=== PATIENT | female | born 1990 | race Caucasian/White ===

== ENCOUNTER 2016-12-29 22:19 | Emergency (ER) | payer MEDICAID ==
[~2016-12-29] VITALS: Ht 152.4 cm; Wt 86.3 kg
[~2016-12-29 22:19] MED LIST: CALC600T5 PO; FERR240T9 PO; PRENAT PO
[2016-12-29 22:25] VITALS: Ht 152.4 cm; Wt 86.3 kg
--- NOTE | 2016-12-30 01:38 | ERD ---
ER Documentation Chief Complaint Date/Time DATE: 12/30/16 TIME: 01:37 Chief Complaint VAG BLEEDING 15 WEEKS PREG. DENIES ABD. CRAMPING. HPI 26-year-old female presents here in emergency department for complaints of vaginal bleeding started tonight. Patient describes the bleeding as mild, patient is approximately 15 weeks . 3 para 2 0. Last menstruation 09/25/2016. Patient denies any abdominal pain. Patient denies any flank pain. Patient denies any fever or chills. Patient denies any nausea or vomiting. ROS All systems reviewed and are negative except as per history of present illness. Medications Home Meds Reported Medications Calcium Carbonate (CALCIUM) 600 Mg Tablet, 600 MG PO, TAB 03/10/16 Ferrous Gluconate (Iron) 1 Tab Tablet, 1 TAB PO, TAB 03/10/16 Multivit/Min/Fol Ac/Iron/Pren* ( S*) 1 Tab Tab, 1 TAB PO DAILY, TAB 03/10/16 Allergies Allergies: Coded Allergies: No Known Drug Allergy (Unverified Allergy, Unknown, 12/29/16) PMhx/Soc History of Surgery: Yes ( x1) Anesthesia Reaction: No Hx Neurological Disorder: No Hx Respiratory Disorders: No Hx Cardiac Disorders: No Hx Psychiatric Problems: No Hx Miscellaneous Medical Probl: No Hx Alcohol Use: No Hx Substance Use: No Hx Tobacco Use: No Smoking Status: Never smoker FmHx Family History: No coronary disease, No diabetes, No other Physical Exam Vitals Vital Signs Date Time Temp Pulse Resp B/P Pulse Ox O2 Delivery O2 Flow Rate FiO2 12/29/16 22:25 97.3 102 18 115/59 99 Physical Exam GENERAL: The patient is well developed and appropriate for usual state of health, in no apparent distress. CHEST: Clear to auscultation bilaterally. There are no rales, wheezes or rhonchi. HEART: Regular rate and rhythm. No murmurs, clicks, rubs or gallops. No S3 or S4. ABDOMEN: Soft, nontender and nondistended. Good bowel sounds. No rebound or guarding. No gross peritonitis. No gross organomegaly or masses. No Fortune sign or McBurney point tenderness. BACK: No midline or flank tenderness. EXTREMITIES: Equal pulses bilaterally. There is no peripheral clubbing, cyanosis or edema. No focal swelling or erythema. Full range of motion. Grossly neurovascularly intact. NEURO: Alert and oriented. Cranial nerves 2-12 intact. Motor strength in all 4 extremities with 5/5 strength. Sensation grossly intact. Normal speech and gait. SKIN: There is no apparent rash or petechia. The skin is warm and dry. HEMATOLOGIC AND LYMPHATIC: There is no evidence of excessive bruising or lymphedema. No gross cervical, axillary, or inguinal lymphadenopathy. Result Diagram: 12/30/16 0154 Results 24 hrs Laboratory Tests Test 12/30/16 01:42 12/30/16 01:54 Urine Bacteria RARE Urine Bilirubin NEGATIVE Urine Clarity SL HAZY Urine Color LT. YELLOW Urine Glucose NEGATIVE% Urine Hemoglobin 3+ Urine Ketones NEGATIVE Urine Leukocyte Esterase NEGATIVE Urine Microscopic RBC >200/HPF Urine Microscopic WBC 0-2/HPF Urine Nitrite NEGATIVE Urine Specific [place] >=1.030 Urine Squamous Epithelial Cells FEW Urine Total Protein TRACE Urine Urobilinogen 0.2 E.U./dL Urine pH 6.0 Basophils # 0.010^3/ul Basophils % 0.2% Beta HCG, Quantitative 01251.0mIU/ml Eosinophils # 0.110^3/ul Eosinophils % 1.1% Hematocrit 27.3% Hemoglobin 8.1g/dl Lymphocytes # 1.910^3/ul Lymphocytes % 20.9% Mean Corpuscular Hemoglobin 21.8pg Mean Corpuscular Hemoglobin Concent 29.7g/dl Mean Corpuscular Volume 73.6fl Mean Platelet Volume 11.0fl Monocytes # 0.710^3/ul Monocytes % 8.3% Neutrophils # 6.210^3/ul Neutrophils % 69.1% Nucleated Red Blood Cells # 0.010^3/ul Nucleated Red Blood Cells % 0.0/100WBC Platelet Count 01284^3/UL Red Blood Count 3.7110^6/ul Red Cell Distribution Width 20.2% White Blood Count 9.010^3/ul PROCEDURE: US OB. CLINICAL INDICATION: Vaginal bleeding. TECHNIQUE: Multiple sonographic images of the pelvis were obtained. Transabdominal imaging only was performed. The images were reviewed on a PACS workstation. COMPARISON: None. FINDINGS: Single live intrauterine is identified. Cardiac activity is present with 161 beats per minute. There is a variable presentation. Measurements: BPD = 15 weeks 2 days. HC = 15 weeks 0 days. AC = 15 weeks 0 days. FL = 14 weeks 5 days. Estimated gestational age of approximately 15 weeks 0 days. The estimated date of delivery is 06/23/2017. The EFW = 109 g which is at the 69th percentile. Limited evaluation of anatomy is without gross abnormality. The placenta is posterior. Cervix is not well visualized. There is a grossly normal amount of amniotic fluid with a MVP = 4.1 cm. IMPRESSION: Single live intrauterine gestation of approximately 15 weeks 0 days. RPTAT: HMVK .Enrique Brownlee MD, MD Date Time Electronically viewed and signed by .Enrique Brownlee MD, MD on 12/30/2016 02:23 .K/ CC: LUCINDA FERNÁNDEZ GENERAL ENGINEER Procedures/MDM Medical Decision Making: Patients vaginal bleeding is most likely consistent of possible threatened . Patient does not show any evidence of hypovolemic shock. Patients hemoglobin and hematocrit is stable. There is low suspicion for ectopic . ISIAH results show viable at 15 weeks, no abruption placenta placenta previa, good, does not communicate fluid noted BetaHCG Quantitative is appropriate for The patient is Rh+, does not need RhoGAM this time. There is no signs of symptoms of dehydration. There is low suspicion for sepsis. Patient appears well and is hemodynamically stable. Disposition: Home. Condition: Stable Instructions: Patient is advised to do bed rest, avoid heavy lifting, and avoid having sex until cleared by OB doctor. Patient is advised to follow up with OB doctor or here at the ER in 48 hours for reevaluation of symptoms, repeat beta HCG quantitative and ultrasound. Patient is advised that is symptoms are worst, severe bleeding, dizziness, severe abdominal pain, fever, worst signs and symptoms to return to the emergency department immediately. Departure Diagnosis: Primary Impression: Vaginal bleeding Additional Impression: Intrauterine Condition: Stable Patient Instructions: Vaginal Bleed in Additional Instructions: Patient is advised to do bed rest, avoid heavy lifting, and avoid having sex until cleared by OB doctor. Patient is advised to follow up with OB doctor or here at the ER in 48 hours for reevaluation of symptoms, repeat beta HCG quantitative and ultrasound. Patient is advised that is symptoms are worst, severe bleeding, dizziness, severe abdominal pain, fever, worst signs and symptoms to return to the emergency department immediately. LUCINDA FERNÁNDEZ NP Dec 30, 2016 01:38
[2016-12-30 02:06] LABS: ADD UMIC YES; URINE BILIRUBIN (Dip) NEGATIVE (NEGATIVE); URINE BLOOD (Dip) 3+ (NEGATIVE); URINE COLOR LT. YELLOW (YELLOW); URINE GLUCOSE (Dip) NEGATIVE (NEGATIVE); URINE KETONES (Dip) NEGATIVE (NEGATIVE); URINE LEUKOCYTE ESTERASE (Dip) NEGATIVE (NEGATIVE); URINE NITRITE (Dip) NEGATIVE (NEGATIVE); URINE TOTAL PROTEIN (Dip) TRACE (NEGATIVE); URINE UROBILINOGEN (Dip) 0.2 E.U./dL (0.1-1.0)
[2016-12-30 02:08] LABS: ADD SCAN DIFF NO
[2016-12-30 02:14] LABS: URINE RBCS >200 /HPF (0)
[2016-12-30 02:15] LABS: BACTERIA,URINE RARE; SQUAMOUS EPITHELIAL CELL,UR FEW
[2016-12-30 02:21] LABS: BASOPHILS % 0.2 % (0.0-2.0); EOSINOPHILS # 0.1 10^3/ul (0.0-0.5); EOSINOPHILS % 1.1 % (0.0-7.0); HEMATOCRIT 27.3 % (37.0-47.0); HEMOGLOBIN 8.1 g/dl (12.0-16.0); LYMPHOCYTES # 1.9 10^3/ul (0.8-2.9); LYMPHOCYTES % 20.9 % (15.0-51.0); MEAN CORPUSCULAR HEMOGLOBIN 21.8 pg (29.0-33.0); MEAN CORPUSCULAR HGB CONC 29.7 g/dl (32.0-37.0); MEAN CORPUSCULAR VOLUME 73.6 fl (82.0-101.0); MONOCYTE # 0.7 10^3/ul (0.3-0.9); MONOCYTES % 8.3 % (0.0-11.0); NEUTROPHIL # 6.2 10^3/ul (1.6-7.5); NEUTROPHILS % 69.1 % (39.0-77.0); PLATELET COUNT 280 10^3/UL (140-415); RED BLOOD COUNT 3.71 10^6/ul (4.20-5.40); RED CELL DISTRIBUTION WIDTH 20.2 % (11.5-14.5)
--- NOTE | 2016-12-30 02:23 | RADRPT ---
PROCEDURE: US OB. CLINICAL INDICATION: Vaginal bleeding. TECHNIQUE: Multiple sonographic images of the pelvis were obtained. Transabdominal imaging only w as performed. The images were reviewed on a PACS workstation. COMPARISON: None. FINDINGS: Single live intrauterine is identified. Cardiac activity is present with 161 beats per mi nute. There is a variable presentation. Measurements: BPD = 15 weeks 2 days. HC = 15 weeks 0 days. AC = 15 weeks 0 days. FL = 14 weeks 5 days. Estimated gestational age of approximately 15 weeks 0 days. The estimated date of delivery is 06/23/2017. The EFW = 109 g which is at the 69th percentile. Limited evaluation of anatomy is without gross abnormality. The placenta is posterior. Cervix is not well visualized. There is a grossly normal amount of amniotic fluid with a MVP = 4.1 cm. IMPRESSION: Single live intrauterine gestation of approximately 15 weeks 0 days. RPTAT: HMVK .Enrique Brownlee MD, Date Time Electronically viewed and signed by .Enrique Brownlee MD, on 12/30/2016 02:23 .K/
[2016-12-30 04:57] VITALS: BP 114/66; PULSE 86; RESP 16
== END 2016-12-30 05:01 | disposition home or self-care (01) ==
LOC: FTE 22:19
DX: O20.9 Hemorrhage in early pregnancy, unspecified (principal); Z3A.15 15 weeks gestation of pregnancy
CPT/HCPCS: 36415; 76805; 81001; 84702; 85025; 86900; 86901; Z7502; 81003

== ENCOUNTER 2017-01-09 10:53 | Emergency (ER) | payer SELFPAY ==
[~2017-01-09] VITALS: Ht 157.5 cm; Wt 78.0 kg
[2017-01-09 11:01] VITALS: Ht 157.5 cm; Wt 78.0 kg
== END 2017-01-09 13:42 | disposition left against medical advice (07) ==
LOC: FTE 10:53
DX: Z53.21 Procedure and treatment not carried out due to patient leaving prior to being seen by health care provider (principal)

== ENCOUNTER 2017-05-06 10:59 | Outpatient (CLI) | payer OTHER ==
[~2017-05-06] VITALS: Ht 154.9 cm; Wt 91.6 kg
[2017-05-06] MEDS ORDERED: LACTATED RINGER'S 1,000 ML IV SCH (11:31)
[2017-05-06 11:33] VITALS: BP 106/55; PULSE 115; RESP 20; Ht 154.9 cm; Wt 91.6 kg
[2017-05-06 11:51] LABS: ADD UMIC YES; UR ASCORBIC ACID NEGATIVE (NEGATIVE); UR BACTERIA FEW /HPF (NONE SEEN); UR BILIRUBIN (Dip) NEGATIVE (NEGATIVE); UR BLOOD (Dip) NEGATIVE (NEGATIVE); UR CLARITY CLOUDY (CLEAR); UR COLOR YELLOW (YELLOW); UR GLUCOSE (Dip) NEGATIVE (NEGATIVE); UR KETONES (Dip) NEGATIVE (NEGATIVE); UR LEUKOCYTE ESTERASE (Dip) NEGATIVE Leu/ul (NEGATIVE); UR MUCUS FEW /HPF (NONE SEEN); UR NITRITE (Dip) NEGATIVE (NEGATIVE); UR RBC 1 /HPF (0-5); UR SPECIFIC GRAVITY (Dip) 1.031 (1.003-1.030); UR SQUAMOUS EPITHELIAL CELL FEW /HPF (FEW); UR TOTAL PROTEIN (Dip) 1+ mg/dl (NEGATIVE); UR UROBILINOGEN (Dip) 1+ mg/dL (NEGATIVE)
--- NOTE | 2017-05-06 12:07 | RADRPT ---
PROCEDURE: US OB biophysical profile. CLINICAL INDICATION: decreased movements TECHNIQUE: Multiple sonographic images of the pelvis were obtained. The images were reviewed on a PACS workstation. COMPARISON: No prior studies are available for comparison. FINDINGS: There is a single viable intrauterine gestation. Cardiac activity is present with 154 beats per min chepe. There is a vertex presentation. The placenta is posterior. There is no evidence of placental abruption. There is a normal amount of amniotic fluid with an LOGAN = 8.9 cm. Biophysical profile: movement 2/2 tone 2/2. breathing 2/2 LOGAN 2/2 Total 06/09 RPTAT: AA . IMPRESSION: Normal biophysical profile. . .Sergey Gamble MD, MD Date Time Electronically viewed and signed by .Sergey Gamble MD, MD on 05/06/2017 12:07 .S/
[2017-05-06] MEDS ORDERED: ACETAMINOPHEN 500 MG TAB PO STA (13:50)
[2017-05-06] MEDS ORDERED: TERBUTALINE 1 MG/ML INJ SC ONE (14:00)
--- NOTE | 2017-05-06 14:28 | PN ---
Triage Information Date/Time May 06, 2017 Weeks of Gestation 32 weeks : 3 Para: 2 Diabetes: none Hypertention: none Additional information 27-year-old with IUP at 32 weeks presented with complaint of feeling low back pain and cramping. She denies any leaking of fluid or vaginal bleeding. She denies any urinary symptoms. Denies any complication during her course. Pain starts in the low back. Crampy. Radiated to the lower back.. Patient had intercourse in 24 hours. Objective Vital Signs Date Time Temp Pulse Resp B/P Pulse Ox O2 Delivery O2 Flow Rate FiO2 05/06/17 11:33 98.6 115 20 106/55 98 Room Air Heart Rate: 130's Contractions: None Exam GA: A&O, NAD Laboratory Tests Test 05/06/17 11:15 Urine Color YELLOW Urine Clarity CLOUDY Urine pH 5.0 Urine Specific [place] 1.031 Urine Ketones NEGATIVEmg/dL Urine Nitrite NEGATIVEmg/dL Urine Bilirubin NEGATIVEmg/dL Urine Urobilinogen 1+mg/dL Urine Leukocyte Esterase NEGATIVELeu/ul Urine Microscopic RBC 1/HPF Urine Microscopic WBC 2/HPF Urine Squamous Epithelial Cells FEW/HPF Urine Bacteria FEW/HPF Urine Mucus FEW/HPF Urine Hemoglobin NEGATIVEmg/dL Urine Glucose NEGATIVEmg/dL Urine Total Protein 1+mg/dl Abdomen: Soft, Non tender Fundal Height consistent with date NST: Cat 1 No contractions on the monitor seen BPP: 06/09 Results/Medications Results 24 hrs Laboratory Tests Test 05/06/17 11:15 Urine Color YELLOW Urine Clarity CLOUDY A Urine pH 5.0 Urine Specific [place] 1.031 H Urine Ketones NEGATIVE Urine Nitrite NEGATIVE Urine Bilirubin NEGATIVE Urine Urobilinogen 1+ H Urine Leukocyte Esterase NEGATIVE Urine Microscopic RBC 1 Urine Microscopic WBC 2 Urine Squamous Epithelial Cells FEW Urine Bacteria FEW A Urine Mucus FEW A Urine Hemoglobin NEGATIVE Urine Glucose NEGATIVE Urine Total Protein 1+ H Medications Current Medications Lactated Ringer's (Lr) 1,000 ml @ 125 mls/hr Q8H IV ; Start 05/06/17 at 11:31 Imaging Results PROCEDURE: Limited obstetric ultrasound CLINICAL INDICATION: Pain TECHNIQUE: Multiple transverse and longitudinal grayscale images of the pelvis were obtained transabdominally and transvaginally.. COMPARISON: same day FINDINGS: The cervix is closed with a length of 5.6 cm. There is a single viable intrauterine gestation. Cardiac activity is present with 150 beats per minute. There is a vertex presentation. The placenta is posterior. There is no evidence for an abruption or placenta previa. RPTAT: AA IMPRESSION: Cervix length measures 5.6 cm. PROCEDURE: US OB biophysical profile. CLINICAL INDICATION: decreased movements TECHNIQUE: Multiple sonographic images of the pelvis were obtained. The images were reviewed on a PACS workstation. COMPARISON: No prior studies are available for comparison. FINDINGS: There is a single viable intrauterine gestation. Cardiac activity is present with 154 beats per minute. There is a vertex presentation. The placenta is posterior. There is no evidence of placental abruption. There is a normal amount of amniotic fluid with an LOGAN = 8.9 cm. Biophysical profile: movement 2/2 tone 2/2. breathing 2/2 LOGAN 2/2 Total 06/09 RPTAT: AA . IMPRESSION: Normal biophysical profile. Assessment/Plan IUP at 32 weeks No evidence of labor Cramps due to dehydration. Resolved after p.o. hydration. Cervix long and closed Symptoms resolved after hydration testing reassuring Patient will be discharged home labor precaution and kick count discussed Follow-up with her OB office in 1-2 days after discharge discussed Continue p.o. hydration Return to triage if she has recurrence of the symptoms or for any other concerns. Patient verbalized understanding. ROLF ENRIQUE MD May 06, 2017 14:28
--- NOTE | 2017-05-06 15:46 | RADRPT ---
PROCEDURE: Limited obstetric ultrasound CLINICAL INDICATION: Pain TECHNIQUE: Multiple transverse and longitudinal grayscale images of the pelvis were obtained castelan sabdominally and transvaginally.. COMPARISON: same day FINDINGS: The cervix is closed with a length of 5.6 cm. There is a single viable intrauterine gestation. Cardiac activity is present with 150 beats per min [place]. There is a vertex presentation. The placenta is posterior. There is no evidence for an abruption or placenta previa. RPTAT: AA IMPRESSION: Cervix length measures 5.6 cm. .Sergey Gamble MD, MD Date Time Electronically viewed and signed by .Sergey Gamble MD, on 05/06/2017 15:46 .S/
--- NOTE | 2017-05-06 16:17 | TRIAGE ---
OB Triage Datetime Report Generated by CPN: 05/06/2017 16:16 Datetime: 05/06/2017 11:29 Time of Arrival: 05/06/2017 10:50 EGA: 32.0 Arrived By: Ambulatory Arrived From: Home Chief Complaint: contractions Movement: Present Contractions: Regular Time Contractions Began: 05/06/2017 08:00 Vaginal Bleeding: None Vaginal Discharge: Denies Recent Sexual Intercouse: Denies Patient Complaints: Contractions Time Provider Notified: 05/06/2017 11:19 Provider Notified: dr. zaidi Initial Plan: bpp, cl, iv hydration
== END 2017-05-06 15:34 | disposition home or self-care (01) ==
LOC: L-D 10:59 → OBT 10:59
PROVIDERS: ATTEND Obstetrics & Gynecology
DX: O62.9 Abnormality of forces of labor, unspecified (principal); Z3A.32 32 weeks gestation of pregnancy
CPT/HCPCS: 36415; 76817; 76818; 81001; 96360; 96372; J3105; J7120; Z7500; Z7610; G0463

== ENCOUNTER 2017-06-16 09:33 | Inpatient (IN) | payer OTHER ==
[~2017-06-16] VITALS: Ht 157.5 cm; Wt 90.9 kg
[~2017-06-16 09:33] MED LIST changes: +EPHEDrine SULFATE 50 MG/5 ML SYG ONE
[2017-06-16] MEDS ORDERED: LACTATED RINGER'S 1,000 ML IV SCH ×4 (09:44→14:35)
[2017-06-16 09:52] VITALS: Ht 157.5 cm; Wt 90.9 kg
[2017-06-16 10:00] VITALS: BP 112/62; PULSE 72; RESP 20
[2017-06-16] MEDS ORDERED: OXYTOCIN 30 UNITS/LR 500 ML IV PRN ×5 (10:00→19:00)
[2017-06-16] MEDS ORDERED: CARBOPROST 250 MCG INJ IM PRN ×5 (10:00→19:00)
[2017-06-16] MEDS ORDERED: MISOPROSTOL 200 MCG TAB PR PRN ×5 (10:00→19:00)
[2017-06-16] MEDS ORDERED: METHYLERGONOVINE 0.2 MG INJ IM PRN ×5 (10:00→19:00)
[2017-06-16] MEDS ORDERED: OXYTOCIN 30 UNITS/LR 500 ML IV SCH ×4 (10:00→14:35)
[2017-06-16 11:02] LABS: ABNORMAL IP MESSAGE 1; BASOPHILS % 0.3 % (0.0-2.0); EOSINOPHILS # 0.1 10^3/ul (0.0-0.5); HEMOGLOBIN 11.8 g/dl (12.0-16.0); LYMPHOCYTES # 1.6 10^3/ul (0.8-2.9); LYMPHOCYTES % 26.5 % (15.0-51.0); MEAN CORPUSCULAR HEMOGLOBIN 31.2 pg (29.0-33.0); MEAN CORPUSCULAR HGB CONC 33.7 g/dl (32.0-37.0); MEAN CORPUSCULAR VOLUME 92.6 fl (82.0-101.0); MEAN PLATELET VOLUME 11.7 fl (7.4-10.4); MONOCYTE # 0.5 10^3/ul (0.3-0.9); MONOCYTES % 8.9 % (0.0-11.0); NEUTROPHILS % 62.8 % (39.0-77.0); PLATELET COUNT 167 10^3/UL (140-415); RED BLOOD COUNT 3.78 10^6/ul (4.20-5.40); RED CELL DISTRIBUTION WIDTH 20.5 % (11.5-14.5)
[2017-06-16 11:08] LABS: POSITIVE DIFF @See below
[2017-06-16 11:21] LABS: INR 1.03; PARTIAL THROMBOPLASTIN TIME 28.9 Sec (25.0-35.0); PROTIME 13.5 Sec (12.2-14.2); PT RATIO 1.1
[2017-06-16] MEDS ORDERED: SOD CHLORIDE 0.9% 1,000 ML IV SCH (11:30)
[2017-06-16] MEDS ORDERED: FAMOTIDINE 20 MG INJ ONE (12:57)
[2017-06-16] MEDS ORDERED: CITRIC ACID/NA CITRATE 30 ML CUP ONE (12:57)
[2017-06-16] MEDS ORDERED: METOCLOPRAMIDE 10 MG INJ ONE (12:58)
[2017-06-16] MEDS ORDERED: LACTATED RINGER'S 1,000 ML IV ONE (13:01)
[2017-06-16] MEDS ORDERED: FAMOTIDINE 20 MG INJ IV STA (13:03)
[2017-06-16] MEDS ORDERED: FENTAnyl 50 MCG/ML VIAL ONE (13:18)
[2017-06-16] MEDS ORDERED: morphine SULFATE/PF (10 MG/10 ML) INJ ONE (13:18)
--- NOTE | 2017-06-16 13:19 | HP ---
Date/Time of Note Date/Time of Note DATE: 06/16/17 TIME: 13:13 OB - History Hx of Present Free Text/Dictation 27 years female 3 para 2 EDC June 23, 2017 admitted to [facility] at 39 weeks gestation history of 2 previous section to undergo repeat section patient also had requested bilateral tubal ligation at the time of her section failure rate of tubal ligation increased risk of ectopic future failure to conceive has been discussed with the patient she would like to proceed with the operation This patient has been under the care of the [facility] and her was complicated with anemia during the course even though she was taking iron soft required transfusion prior to her surgery. Chief Complaint: history of 2 previous request for tubal ligation Estimated Due Date: Jun 23, 2017 : 3 Para: 2 Care: Good Care Ultrasounds: Normal mid trimester US Obstetrical Complications: Other (Anemia) Medical Complications: None Past Family/Social History * Past Medical, Surgical, Family and Obstetric Histories reviewed from chart. Rubella: immune RPR/VDRL: Negative GBS Status: Negative HBsAG: Negative OB Admission Exam Vital Signs Vital Signs Vital Signs Date Time Temp Pulse Resp B/P Pulse Ox O2 Delivery O2 Flow Rate FiO2 06/16/17 10:00 98.3 72 20 112/62 99 Room Air Physical Exam HEENT: WNL Heart: Rhythm Normal Lungs: Clear, Equal Abdomen: WNL Extremities: Normal Reflexes: Normal Cervical Dilatation: None Effacement: 0% Station: -2 Membranes: Intact Heart Rate: 130's Decelerations: No Decelerations Varibility: Moderate Contractions on Admission: >10 Minutes Apart Intensity: Mild Last 72 hours Lab Results CBC & BMP 06/16/17 10:15 OB Assessment/Plan Reason for admission: other (Repeat bilateral tubal ligation patient has been counseled regarding the failure rate of tubal ligation complication of the surgery including but not limited to bowel and bladder injury infection hemorrhage and hematoma and she is willing to go ahead with this procedure) Plan: Section Induction Method: other (Repeat bilateral tubal ligation) MAUREEN FAY MD Jun 16, 2017 13:19
[2017-06-16] MEDS: CEFAZOLIN 2 GM/50 ML (PMX) 50 ML IV SCH ×2 (13:21→13:52)
[2017-06-16] MEDS ORDERED: METOCLOPRAMIDE 10 MG INJ IV ONE (13:30)
[2017-06-16] MEDS ORDERED: CITRIC ACID/NA CITRATE 30 ML CUP PO ONE ×2 (13:30)
[2017-06-16] MEDS ORDERED: FAMOTIDINE 20 MG INJ IV ONE (13:30)
[2017-06-16] MEDS ORDERED: PHENYLephrine (100 MCG/ML) 5ML SYG ONE ×2 (13:31→13:46)
[2017-06-16] MEDS ORDERED: FENTAnyl 50 MCG/ML VIAL IV PRN (14:00)
[2017-06-16] MEDS ORDERED: HYDROmorphONE (0.2 MG/ML) 10ML SYG IV PRN (14:00)
[2017-06-16] MEDS ORDERED: KETOROLAC 30 MG INJ IV PRN (14:00)
[2017-06-16] MEDS ORDERED: NALOXONE (0.4 MG/ML) INJ IV PRN (14:00)
[2017-06-16] MEDS ORDERED: PROCHLORPERAZINE 10 MG INJ IV PRN (14:00)
[2017-06-16] MEDS ORDERED: MEPERIDINE 25 MG INJ IV PRN (14:00)
[2017-06-16] MEDS ORDERED: HYDROmorphONE 1 MG/ML SYG IV PRN ×2 (14:00)
[2017-06-16] MEDS ORDERED: NALBUPHINE HCL (10 MG/1 ML) INJ IV PRN (14:00)
[2017-06-16] MEDS ORDERED: ONDANSETRON 4 MG INJ IV PRN ×2 (14:00)
[2017-06-16] MEDS ORDERED: DIPHENHYDRAMINE 50 MG INJ IV PRN ×2 (14:00)
[2017-06-16] MEDS ORDERED: ZOLPIDEM 5 MG TAB PO PRN (14:00)
[2017-06-16] MEDS ORDERED: OXYTOCIN 30 UNITS/LR 500 ML IV ONE (14:11)
[2017-06-16] MEDS ORDERED: ONDANSETRON 4 MG INJ ONE (14:11)
--- NOTE | 2017-06-16 14:53 | OPR ---
Operative Report Planned Procedure Free Text/Dictation 27 years old female 3 para 2 EDC June 23, 2017 history of 2 previous section request for bilateral tubal ligation Procedure date Jun 16, 2017 Procedure(s) Repeat bilateral tubal ligation Performed by: MAUREEN FAY MD Assisting provider: UBALDO AVALOS MD Anesthesiologist: MARIANA COLLAZO MD Pre-procedure diagnosis history of 2 previous request for BTL Anesthesia Type: epidural Procedure Description Under satisfactory spinal [] anesthesia, the patient was prepped and draped and placed in a supine position, tilted to the left. Pfannenstiel incision was made , carried through the subcutaneous tissue. Bleeders brought under control with electrocautery. Fascia incised to the length of the incision. Rectus muscles from the fascia, divided midline. Peritoneum exposed, entered through a transverse incision. Exploration of abdomen revealed gravid uterus normal- appearing tubes and ovary. Extremely thinned out lower segment of the uterus with a small window and thickness down to 1 mm ,bladder flap was developed. Transverse incision was made in the lower segment of the uterus. Amniotic sac ruptured. [] amniotic fluid noted light baby girl was delivered from unengaged vertex L OT position. [] Nasal oropharyngeal suction was performed. baby handed to the team for immediate attention. Patient received 20 units of Pitocin the placenta was delivered manually intact. Uterine cavity was cleaned with wet sponge and drainage established. Uterus closed in 2 layers using Monocryl #1 [] in continuous fashion. Bilateral tubal ligation performed by identifying the right fallopian tube fimbria and portion of the ampullar segment excised suture material used #0 plain catgut was reinforced with the same suture material cut end of the tube was cauterized specimen submitted to the pathology same procedure performed for the opposite peritoneal cavity irrigated with warm saline. Sponge, needle and instrument count reported to be correct. Abdominal peritoneum closed with 2-0 chromic catgut continuous. Rectus muscle approximated with 2-0 chromic catgut []. Fascia closed with [#1 PDS] subcutaneous tissue approximated with few interrupted 2-0 chromic catgut, skin closed with NSORB. Estimated blood loss 700 cc . Urine bag contained [200]mL of clear urine patient tolerated procedure well transferred to recovery room in good condition Post-Procedure Findings: Live Baby girl 9 and9 Specimen removed: No Complications: None Pt Condition post procedure: stable Physician Certification I, the undersigned physician, hereby certify that I have discussed the procedure described in this consent form with this patient (or the patient's legal software support representative), including: * The risk and benefits of the procedure; * Any adverse reactions that may reasonably be expected to occur; * Any alternative efficacious methods of treatment which may be medically viable ; * The potential problems that may occur during recuperation; * Potential for blood transfusion and associated risks/benefits; and * Any research or economic interest I may have regarding this treatment. I further certify that the patient/legally responsible person was encouraged to ask question and that all questions were answered. MAUREEN FAY MD Jun 16, 2017 14:52
[2017-06-16] MEDS ORDERED: CEFAZOLIN 1 GM/50 ML (PMX) 50 ML IVPB SCH ×4 (15:00→19:00)
[2017-06-16 18:15] VITALS: BP 109/61; PULSE 71; RESP 18
[2017-06-16] MEDS ORDERED: OXYCODONE/ACETAMINOPHEN (5/325) TAB PO PRN ×2 (19:00)
[2017-06-16] MEDS ORDERED: HYDROCODONE/APAP (5/325) TAB PO PRN (19:00)
[2017-06-16] MEDS ORDERED: LANOLIN 7 GM TUBE TOP PRN (19:00)
[2017-06-16] MEDS: OXYTOCIN 30 UNITS/LR 500 ML IV SCH (19:26)
[2017-06-16 20:20] VITALS: BP 105/69; PULSE 65; RESP 20
[2017-06-17] MEDS: OXYTOCIN 30 UNITS/LR 500 ML IV SCH ×4 (01:19→09:39)
[2017-06-17] MEDS: KETOROLAC 30 MG INJ IV PRN ×2 (03:55→11:55)
[2017-06-17 04:20] VITALS: BP 100/60; PULSE 70; RESP 20
[2017-06-17 09:18] VITALS: BP 95/64; PULSE 66; RESP 20
[2017-06-17] MEDS: SENNA/DOCUSATE NA (8.6MG/50MG) TAB PO SCH ×2 (09:34→22:55)
[2017-06-17 10:13] LABS: BASOPHILS % 0.3 % (0.0-2.0); EOSINOPHILS % 0.3 % (0.0-7.0); HEMATOCRIT 36.3 % (37.0-47.0); HEMOGLOBIN 12.3 g/dl (12.0-16.0); LYMPHOCYTES % 14.9 % (15.0-51.0); MEAN CORPUSCULAR HEMOGLOBIN 31.8 pg (29.0-33.0); MEAN CORPUSCULAR HGB CONC 33.9 g/dl (32.0-37.0); MEAN CORPUSCULAR VOLUME 93.8 fl (82.0-101.0); MEAN PLATELET VOLUME 11.3 fl (7.4-10.4); MONOCYTE # 0.4 10^3/ul (0.3-0.9); MONOCYTES % 6.5 % (0.0-11.0); NEUTROPHILS % 77.7 % (39.0-77.0); PLATELET COUNT 143 10^3/UL (140-415); RED BLOOD COUNT 3.87 10^6/ul (4.20-5.40); RED CELL DISTRIBUTION WIDTH 19.3 % (11.5-14.5); WHITE BLOOD COUNT 6.5 10^3/ul (4.8-10.8)
[2017-06-17 11:55] VITALS: BP 120/79; PULSE 56; RESP 18
[2017-06-17] MEDS: HYDROCODONE/APAP (5/325) TAB PO PRN ×2 (16:04→22:56)
[2017-06-17 16:15] VITALS: BP 112/60; PULSE 68; RESP 19
[2017-06-17] MEDS: IBUPROFEN 600 MG TAB PO SCH (18:06)
--- NOTE | 2017-06-17 18:10 | PN ---
Date/Time of Note Date/Time of Note DATE: 06/17/17 TIME: 18:09 OB Subjective Subjective Subjective Post day 1 Afebrile VSS Abdomen soft, incision dry, bowel sounds present, uterus firm, lochia normal, still within normal MAUREEN FAY MD Jun 17, 2017 18:10
[2017-06-17 20:35] VITALS: BP 102/57; PULSE 73; RESP 18
[2017-06-18] MEDS: IBUPROFEN 600 MG TAB PO SCH ×4 (00:28→18:05)
[2017-06-18 05:25] VITALS: BP 96/52; PULSE 70; RESP 19
[2017-06-18 08:10] VITALS: BP 103/57; PULSE 61; RESP 18
[2017-06-18] MEDS: SENNA/DOCUSATE NA (8.6MG/50MG) TAB PO SCH (08:44)
--- NOTE | 2017-06-18 09:50 | PN ---
Date/Time of Note Date/Time of Note DATE: 06/18/17 TIME: 09:49 OB Subjective Subjective Subjective June 18, 2017 Post 2 hospital visit Doing Well Afebrile Ambulatory Chest Clear Breasts are soft , Nipples are intact Abdomen is soft Fundus is firm Moderate amount of lochia Incision is clean ,No evidence of infection No calf tenderness No ankle edema Current Medications Medications (Trade) Dose Ordered Sig/Moriah Route PRN Reason Start Time Stop Time Status Last Admin Dose Admin Lactated Ringer's 1,000 ml @ 125 mls/hr Q8H IV 06/16/17 09:44 06/16/17 14:46 DC 06/16/17 10:18 Cefazolin Sodium/ Dextrose 50 ml @ 100 mls/hr ONCE IV 06/16/17 10:00 06/16/17 18:52 DC 06/16/17 13:52 Oxytocin/Lactated Ringer's 500 ml @ 125 mls/hr ONCE IV 06/16/17 10:00 06/16/17 14:47 DC Oxytocin/Lactated Ringer's 500 ml @ 0 mls/hr ONCE PRN IV For Hemorrhage Management 06/16/17 10:00 06/16/17 14:47 DC Methylergonovine Maleate (Methergine) 0.2 mg ONCE PRN IM VAGINAL BLEEDING 06/16/17 10:00 Cancel Carboprost Tromethamine (Hemabate) 250 mcg ONCE PRN IM VAGINAL BLEEDING 06/16/17 10:00 Cancel Misoprostol 1000 mcg 1,000 mcg ONCE PRN MS VAGINAL BLEEDING 06/16/17 10:00 Cancel Sodium Chloride (NS) 1,000 ml @ 50 mls/hr Q20H IV 06/16/17 11:30 06/16/17 18:53 DC 06/16/17 11:22 Citric Acid/ Sodium Citrate (Bicitra) 30 ml STK-MED ONCE .ROUTE 06/16/17 12:57 06/16/17 12:58 DC Famotidine (Pepcid Iv) 20 mg STK-MED ONCE .ROUTE 06/16/17 12:57 06/16/17 12:58 DC Metoclopramide HCl 10 mg 10 mg STK-MED ONCE .ROUTE 06/16/17 12:58 06/16/17 12:59 DC Lactated Ringer's (Lr) 1,000 ml @ 1,000 mls/hr Q1H ONCE IV 06/16/17 13:01 06/16/17 14:01 DC Citric Acid/ Sodium Citrate (Bicitra) 30 ml PRE-OP ONCE PO 06/16/17 13:30 06/16/17 13:31 DC 06/16/17 13:05 Famotidine (Pepcid Iv) 20 mg pre-procedure ONCE IV 06/16/17 13:30 06/16/17 13:31 DC Metoclopramide HCl (Reglan) 10 mg ONCE ONCE IV 06/16/17 13:30 06/16/17 13:31 DC 06/16/17 13:09 Citric Acid/ Sodium Citrate (Bicitra) 30 ml ONCE ONCE PO 06/16/17 13:30 06/16/17 13:31 DC Famotidine (Pepcid Iv) 20 mg ONCE STAT IV 06/16/17 13:03 06/16/17 13:07 DC 06/16/17 13:06 Morphine Sulfate (Duramorph) 10 mg STK-MED ONCE .ROUTE 06/16/17 13:18 06/16/17 13:19 DC Fentanyl (Sublimaze) 100 mcg STK-MED ONCE .ROUTE 06/16/17 13:18 06/16/17 13:19 DC Phenylephrine HCl (Dennis-Synephrine Inj Syg) 500 mcg STK-MED ONCE .ROUTE 06/16/17 13:31 06/16/17 13:32 DC Phenylephrine HCl (Dennis-Synephrine Inj Syg) 500 mcg STK-MED ONCE .ROUTE 06/16/17 13:46 06/16/17 13:47 DC Hydromorphone HCl (Dilaudid (Rec)) 0.4 mg PACU ORDER PRN IV PAIN 06/16/17 14:00 06/16/17 18:53 DC Fentanyl (Sublimaze) 25 mcg PACU ORDER PRN IV PAIN 06/16/17 14:00 06/16/17 18:53 DC 06/16/17 17:12 Ketorolac Tromethamine (Toradol) 30 mg PACU ORDER PRN IV FOR PAIN AFTER IV NARCOTIC MED 06/16/17 14:00 06/16/17 18:53 DC 06/16/17 15:38 Ondansetron HCl (Zofran Inj) 4 mg PACU ORDER PRN IV NAUSEA AND/OR VOMITING 06/16/17 14:00 06/16/17 18:53 DC Prochlorperazine (Compazine Inj) 5 mg PACU ORDER PRN IV NAUSEA AND/OR VOMITING 06/16/17 14:00 06/16/17 18:53 DC Meperidine HCl (Demerol) 25 mg PACU ORDER PRN IV POST-OP RIGORS 06/16/17 14:00 06/16/17 18:53 DC Diphenhydramine HCl (Benadryl) 25 mg PACU ORDER PRN IV PRURITUS 06/16/17 14:00 06/16/17 18:53 DC Naloxone HCl (Narcan) 0.1 mg Q2M PRN IV FOR RESP RATE 8 OR LESS 06/16/17 14:00 06/17/17 13:59 DC Ketorolac Tromethamine (Toradol) 30 mg Q6H PRN IV PAIN 06/16/17 14:00 06/17/17 13:59 DC 06/17/17 11:55 Hydromorphone HCl (Dilaudid) 0.4 mg Q3H PRN IV PAIN LEVEL 1-5 06/16/17 14:00 06/17/17 13:59 DC Hydromorphone HCl (Dilaudid) 0.6 mg Q3H PRN IV PAIN LEVEL 6-10 06/16/17 14:00 06/17/17 13:59 DC Diphenhydramine HCl (Benadryl) 25 mg Q6H PRN IV ITCHING 06/16/17 14:00 06/17/17 13:59 DC Nalbuphine HCl (Nubain) 5 mg ONCE PRN IV ITCHING 06/16/17 14:00 06/17/17 13:59 DC Ondansetron HCl (Zofran Inj) 4 mg Q6H PRN IV NAUSEA AND/OR VOMITING 06/16/17 14:00 06/17/17 13:59 DC Zolpidem Tartrate (Ambien) 5 mg HS MAY REPEAT X 1 PRN PO INSOMNIA 06/16/17 14:00 06/17/17 13:59 DC Miscellaneous Information Duramorph: 0.2 mg Spi... GIVEN XX 06/16/17 14:00 06/16/17 18:56 DC Oxytocin/Lactated Ringer's 500 ml @ ud STK-MED ONCE IV 06/16/17 14:11 06/16/17 14:12 DC Ondansetron HCl 4 mg 4 mg STK-MED ONCE .ROUTE 06/16/17 14:11 06/16/17 14:12 DC Lactated Ringer's 1,000 ml @ 125 mls/hr Q8H IV 06/16/17 14:35 Cancel Oxytocin/Lactated Ringer's 500 ml @ 0 mls/hr ONCE PRN IV For Hemorrhage Management 06/16/17 15:00 06/16/17 18:53 DC Methylergonovine Maleate (Methergine) 0.2 mg ONCE PRN IM VAGINAL BLEEDING 06/16/17 15:00 Cancel Carboprost Tromethamine (Hemabate) 250 mcg ONCE PRN IM VAGINAL BLEEDING 06/16/17 15:00 Cancel Misoprostol 1000 mcg 1,000 mcg ONCE PRN MS VAGINAL BLEEDING 06/16/17 15:00 Cancel Cefazolin Sodium 50 ml @ 100 mls/hr ONCE IVPB 06/16/17 15:00 06/16/17 15:29 Cancel Oxytocin/Lactated Ringer's 500 ml @ 125 mls/hr Q4H IV 06/16/17 14:35 06/16/17 18:53 DC 06/16/17 15:48 Lactated Ringer's 1,000 ml @ 125 mls/hr Q8H IV 06/16/17 14:35 Cancel Oxytocin/Lactated Ringer's 500 ml @ 0 mls/hr ONCE PRN IV For Hemorrhage Management 06/16/17 15:00 06/16/17 15:00 DC Methylergonovine Maleate (Methergine) 0.2 mg ONCE PRN IM VAGINAL BLEEDING 06/16/17 15:00 Cancel Carboprost Tromethamine (Hemabate) 250 mcg ONCE PRN IM VAGINAL BLEEDING 06/16/17 15:00 Cancel Misoprostol 1000 mcg 1,000 mcg ONCE PRN MS VAGINAL BLEEDING 06/16/17 15:00 Cancel Cefazolin Sodium 50 ml @ 100 mls/hr ONCE IVPB 06/16/17 15:00 06/16/17 15:29 Cancel Oxytocin/Lactated Ringer's 500 ml @ 125 mls/hr Q4H IV 06/16/17 14:35 06/16/17 14:47 DC Lactated Ringer's 1,000 ml @ 125 mls/hr Q8H IV 06/16/17 14:35 06/16/17 18:54 DC Oxytocin/Lactated Ringer's 500 ml @ 0 mls/hr ONCE PRN IV For Hemorrhage Management 06/16/17 15:00 06/16/17 18:54 DC Methylergonovine Maleate (Methergine) 0.2 mg ONCE PRN IM VAGINAL BLEEDING 06/16/17 15:00 06/16/17 18:54 DC Carboprost Tromethamine (Hemabate) 250 mcg ONCE PRN IM VAGINAL BLEEDING 06/16/17 15:00 06/16/17 18:54 DC Misoprostol 1000 mcg 1,000 mcg ONCE PRN MS VAGINAL BLEEDING 06/16/17 15:00 06/16/17 18:54 DC Cefazolin Sodium 50 ml @ 100 mls/hr ONCE IVPB 06/16/17 15:00 06/16/17 15:29 Cancel Oxytocin/Lactated Ringer's 500 ml @ 125 mls/hr Q4H IV 06/16/17 14:35 06/16/17 18:54 DC Acetaminophen/ Hydrocodone Bitart (Zanoni (5/325)) 1 tab Q4H PRN PO PAIN LEVEL 4-6 06/16/17 19:00 Acetaminophen/ Hydrocodone Bitart (Zanoni (5/325)) 2 tab Q4H PRN PO PAIN LEVEL 7-10 06/16/17 19:00 06/17/17 22:56 Oxycodone/ Acetaminophen (Percocet (5/ 325)) 1 tab Q4H PRN PO PAIN LEVEL 4-6 06/16/17 19:00 Oxycodone/ Acetaminophen (Percocet (5/ 325)) 2 tab Q4H PRN PO PAIN LEVEL 7-10 06/16/17 19:00 06/18/17 08:45 Ibuprofen (Motrin) 600 mg Q6 PO 06/17/17 18:00 06/18/17 05:43 Simethicone (Mylicon) 160 mg Q8H PRN PO DISTENSION/GAS/BLOATING 06/16/17 19:00 06/18/17 08:44 Senna/Docusate Sodium (Senokot-S) 1 tab BID PO 06/17/17 09:00 06/18/17 08:44 Lanolin ([id number]) 1 applic BEDSIDE MEDICATION PRN TOP BEDSIDE FOR SOPHIA TO NIPPLES 06/16/17 19:00 Diphtheria/ Tetanus/Acell Pertussis 0.5 ml 0.5 ml ONCE ONCE IM* 06/19/17 09:00 06/19/17 09:01 Oxytocin/Lactated Ringer's 500 ml @ 0 mls/hr ONCE PRN IV For Hemorrhage Management 06/16/17 19:00 Methylergonovine Maleate (Methergine) 0.2 mg ONCE PRN IM VAGINAL BLEEDING 06/16/17 19:00 Carboprost Tromethamine (Hemabate) 250 mcg ONCE PRN IM VAGINAL BLEEDING 06/16/17 19:00 Misoprostol 1000 mcg 1,000 mcg ONCE PRN MS VAGINAL BLEEDING 06/16/17 19:00 Cefazolin Sodium 50 ml @ 100 mls/hr ONCE IVPB 06/16/17 19:00 06/16/17 19:29 DC 06/16/17 19:25 Oxytocin/Lactated Ringer's 500 ml @ 125 mls/hr Q4H IV 06/16/17 18:46 06/17/17 15:54 DC 06/17/17 09:39 Ephedrine Sulfate 50 mg STK-MED ONCE .ROUTE 06/16/17 07:00 06/17/17 21:38 DC New born is doing well, Breast feeding BRAD COLON MD Jun 18, 2017 09:50
[2017-06-18 15:50] VITALS: BP 109/55; PULSE 61; RESP 17
[2017-06-18 20:00] VITALS: BP 109/77; PULSE 78; RESP 19
[2017-06-19] MEDS: SENNA/DOCUSATE NA (8.6MG/50MG) TAB PO SCH ×2 (00:14→08:06)
[2017-06-19] MEDS: IBUPROFEN 600 MG TAB PO SCH ×2 (00:14→05:32)
[2017-06-19 04:00] VITALS: BP 102/65; PULSE 57; RESP 18
[2017-06-19] MEDS: HYDROCODONE/APAP (5/325) TAB PO PRN (08:07)
[2017-06-19 08:10] VITALS: BP 108/68; PULSE 56; RESP 16
[2017-06-19] MEDS ORDERED: DIPHTH/TET/ACEL PERTUSS (ADULT) 0.5 ML VIAL IM* ONE (09:00)
--- NOTE | 2017-06-19 09:25 | PD.PPDC ---
[facility] Discharge Instruction Condition Patient Condition: Good Diet Diet: Resume Regular Diet Activity/Restrictions Activity: Normal Activity May Shower Restrictions: No Exercising No Lifting No Driving No Sexual Activity Nothing in the Vagina No [place] No Tampons, douche Wound/Drain Care Instructions Wound/Drain Care Instructions: Remove Steri Strips in 1 week Follow-up Follow-up with Physician: 1, Week/Weeks Provider Information: Post instructions given recommended patient to make an appointment to be seen at the clinic in 1 week Return to clinic for [employer] Instructions: Fever greater than 101 Chills Worsening abdominal pain Excessive Vaginal Bleeding More than 2 pads per hour Unable to tolerate diet OB Instructions: Breast Tenderness Depression Blurried Vision Headache Surgical Instructions: Incisional Drainage Incisional Redness MAUREEN FAY MD Jun 19, 2017 09:25
--- NOTE | 2017-06-19 09:29 | DS ---
Date/Time of Note Date/Time of Note DATE: 06/19/17 TIME: 09:26 Discharge Summary Admission/Discharge Info Admit Date/Time Jun 16, 2017 at 09:33 Discharge Date/Time June 19 2017-09-20 Discharge Diagnosis Post date 3 Patient Condition: Good Procedures Repeat bilateral tubal ligation Hx of Present Illness Term history of previous request for bilateral tubal ligation Hospital Course Satisfactory recovery uneventful Home Meds Reported Medications Calcium Carbonate (CALCIUM) 600 Mg Tablet, 600 MG PO, TAB 03/10/16 Ferrous Gluconate (Iron) 1 Tab Tablet, 1 TAB PO, TAB 03/10/16 Multivit/Min/Fol Ac/Iron/Pren* ( S*) 1 Tab Tab, 1 TAB PO DAILY, TAB 03/10/16 Follow-up Plan Post instructions given recommended to make appointment to be seen in the office in 1 week Primary Care Provider [facility] Time spent on discharge: < 30 minutes MAUREEN FAY MD Jun 19, 2017 09:28
== END 2017-06-19 12:35 | disposition home or self-care (01) | DRG 766 ==
LOC: L-D 09:33 → OBG 13:01 → L-D 13:05 → PP1 18:14
PROVIDERS: ADMIT Obstetrics & Gynecology; ATTEND Obstetrics & Gynecology
PROC: 0UL70ZZ Occlusion of Bilateral Fallopian Tubes, Open Approach (ICD-10-PCS; 2017-06-16)
PROC: 30233N1 Transfusion of Nonautologous Red Blood Cells into Peripheral Vein, Percutaneous Approach (ICD-10-PCS; 2017-06-16)
PROC: 10D00Z1 Extraction of Products of Conception, Low, Open Approach (ICD-10-PCS; principal; 2017-06-16 12:30)
DX: O34.211 Maternal care for low transverse scar from previous cesarean delivery (principal); O99.02 Anemia complicating childbirth; Z30.2 Encounter for sterilization; Z37.0 Single live birth; Z3A.39 39 weeks gestation of pregnancy
CPT/HCPCS: 36430; 85025; 85610; 85730; 86592; 86850; 86885; 86900; 86901; 86920; 88302; 90715; 99464; J0690; J1885; J2274; J2370; J2405; J2590; J2765; J2790; J3010; J7030; J7120; P9016

== ENCOUNTER 2018-08-23 01:16 | Emergency (ER) | END 2018-08-23 03:02 | disposition home or self-care (01) ==